=== PATIENT | female | born 1985 | race Caucasian/White ===

== ENCOUNTER 2018-08-07 14:11 | Observation (INO) ==
[2018-08-07] MEDS ORDERED: ACETAMINOPHEN 325 MG TABLET PO PRN (16:44)
[2018-08-07] MEDS ORDERED: ONDANSETRON 4 MG/2 ML VIAL IV PRN (16:44)
[2018-08-07] MEDS ORDERED: PROMETHAZINE 25 MG/1 ML VIAL IM PRN (16:44)
[2018-08-07] MEDS ORDERED: HYDROmorphone 2 MG/1 ML VIAL IV PRN (16:44)
[2018-08-07 17:13] LABS: Basophils % 0.2 % (0.0-0.8); Eosinophils # 0.1 10*3/uL (0.0-0.87); Eosinophils % 1.1 % (0.00-10.9); Hematocrit 40.3 VOL% (35.7-47.0); Hemoglobin 13.3 GM/DL (12.0-16.0); Immature Granulocytes % 0.3 %; Immature Granulocytes Absolute 0.03 #; Lymphocytes # 1.8 10*3/uL (1.4-4.0); Lymphocytes % 19.7 % (21.3-54.2); Mean Corpuscular Hemoglobin 30 PG (27-34); Mean Platelet Volume 9.5 FL (9.6-12.0); Monocytes # 0.5 10*3/uL (0.11-0.8); Monocytes % 5.3 % (1.7-12.7); Neutrophils # 6.6 10*3/uL (1.4-7.4); Neutrophils % 73.4 % (38.7-73.9); Platelet Count 275 T/CUMM (130-400); Red Blood Count 4.38 MC/CUMM (3.8-5.5)
[2018-08-07 17:36] LABS: Albumin 3.3 G/DL (3.4-5.0); Bilirubin,Total 0.5 MG/DL (0.2-1.0); Calcium 8.9 MG/DL (8.5-10.1); Osmolality,Calculated 278.4 MOS/KG (273-304); Potassium 3.9 MMOL/L (3.5-5.1); Total Protein 7.6 G/DL (6.4-8.3)
[2018-08-07] MEDS: PANTOPRAZOLE 40 MG VIAL IV SCH ×2 (18:13→20:48)
[2018-08-07] MEDS: LACTATED RINGERS 1,000 ML IV SCH (18:13)
[2018-08-08] MEDS: LACTATED RINGERS 1,000 ML IV SCH ×2 (03:01→10:57)
[2018-08-08] MEDS ORDERED: MIDAZOLAM 2 MG/2 ML VIAL ONE ×2 (08:58→13:21)
[2018-08-08] MEDS ORDERED: PROPOFOL 200 MG/20 ML VIAL IV ONE (09:00)
[2018-08-08] MEDS ORDERED: LORATADINE 10 MG TABLET PO SCH (09:00)
[2018-08-08] MEDS ORDERED: LIDOCAINE 100 MG/5 ML SYRINGE ONE (09:00)
[2018-08-08] MEDS ORDERED: cefOXitin 2,000 MG in SYRINGE 1 EACH IV ONE (10:15)
[2018-08-08] MEDS: PANTOPRAZOLE 40 MG VIAL IV SCH (10:57)
[2018-08-08] MEDS: ONDANSETRON ODT 4 MG TABLET PO PRN ×2 (11:09→17:23)
[2018-08-08] MEDS ORDERED: LIDOCAINE 1%/EPI INJ 20 ML VIAL ONE ×2 (12:11→13:29)
[2018-08-08] MEDS ORDERED: TISSUE ADHESIVE 1 EACH APPLICATOR TOP ONE (12:11)
[2018-08-08] MEDS ORDERED: ACETAMINOPHEN 1,000 MG/100 ML VIAL IV ONE ×2 (13:20→14:30)
[2018-08-08] MEDS ORDERED: SCOPOLAMINE 1.5 MG PATCH TRANSDERM ONE (13:39)
[2018-08-08] MEDS: MEPERIDINE 25 MG/1 ML VIAL IV PRN ×2 (14:15→14:25)
[2018-08-08] MEDS ORDERED: diphenhydrAMINE 50 MG/1 ML VIAL IV PRN (14:17)
[2018-08-08] MEDS ORDERED: HYDROmorphone 2 MG/1 ML VIAL IV PRN (14:17)
[2018-08-08] MEDS ORDERED: ONDANSETRON 4 MG/2 ML VIAL IV PRN (14:17)
[2018-08-08] MEDS ORDERED: PROMETHAZINE INJ 25 MG in SODIUM CHLORIDE 0.9% 50 ML IV PRN (14:17)
[2018-08-08] MEDS ORDERED: PROMETHAZINE 25 MG/1 ML VIAL ONE (14:19)
[2018-08-08] MEDS ORDERED: ONDANSETRON 4 MG/2 ML VIAL ONE (14:29)
[2018-08-08] MEDS ORDERED: DEXAMETHASONE 4 MG/1 ML VIAL ONE (14:30)
[2018-08-08] MEDS ORDERED: GLYCOPYRROLATE 0.4 MG/2 ML VIAL ONE (14:31)
[2018-08-08 16:28] VITALS: BP 140/74
== END 2018-08-08 17:46 | disposition home or self-care (01) ==
LOC: N.3E 16:20 → INTOOBSV 16:20 → N.3E 08-08 17:46
PROVIDERS: ADMIT Surgery; ATTEND Surgery
PROC: LAPCHOL (2018-08-08 13:33)